=== PATIENT | male | born 1965 | race Caucasian/White ===

== ENCOUNTER 2017-03-13 18:04 | Inpatient (IN) | payer MEDICARE, OTHER, SELFPAY ==
[~2017-03-13] VITALS: Ht 177.8 cm; Wt 116.7 kg
[2017-03-13] MEDS ORDERED: SODIUM CHLORIDE 0.9% 1,000 ML IV ONE (18:26)
[2017-03-13] MEDS ORDERED: ONDANSETRON ODT 4 MG PO ONE (18:30)
[2017-03-13] MEDS ORDERED: SODIUM CHLORIDE FLUSH 10ML SYR IVF ONE (18:30)
[2017-03-13] MEDS ORDERED: ONDANSETRON 2MG/ML, 2ML IVPush ONE (18:30)
[2017-03-13] MEDS ORDERED: ONDANSETRON ODT 4 MG ONE (18:30)
[2017-03-13 19:27] LABS: ASPARTATE AMINO TRANSFERASE 15 U/L (15-37); BLOOD UREA NITROGEN 18 mg/dL (7-18)
[2017-03-13] MEDS ORDERED: OMNIPAQUE 350 MG/ML, 100ML BOTTLE ONE (20:15)
[2017-03-13] MEDS ORDERED: FENTANYL PF 100 MCG/2ML ONE (20:30)
[2017-03-13] MEDS ORDERED: FENTANYL PF 100 MCG/2ML IV ONE (21:00)
[2017-03-13] MEDS ORDERED: BISACODYL 10 MG SUPP PR PRN (21:30)
[2017-03-13] MEDS ORDERED: PROMETHAZINE 25 MG/ML, 1ML IM PRN (21:30)
[2017-03-13] MEDS: LACTATED RINGERS 1,000 ML IV SCH (21:30)
[2017-03-14] MEDS: morphine SULFATE 10 MG/ML, 1ML IVPush PRN ×7 (00:44→21:48)
[2017-03-14] MEDS: ENOXAPARIN 40 MG/0.4 ML SQ SCH ×2 (01:43→21:48)
[2017-03-14 03:38] VITALS: BP 145/95
[2017-03-14] MEDS ORDERED: ONDANSETRON ODT 4 MG ONE (04:09)
[2017-03-14] MEDS: ONDANSETRON 2MG/ML, 2ML IVPush PRN (04:11)
[2017-03-14] MEDS: LACTATED RINGERS 1,000 ML IV SCH ×3 (05:30→17:34)
[2017-03-14 06:15] LABS: BLOOD UREA NITROGEN 15 mg/dL (7-18)
[2017-03-14 09:06] VITALS: BP 122/80
[2017-03-14 12:48] VITALS: BP 130/84
[2017-03-14 21:03] VITALS: BP 133/85
[2017-03-15 02:41] VITALS: BP 123/87
[2017-03-15] MEDS: LACTATED RINGERS 1,000 ML IV SCH ×3 (04:57→19:13)
[2017-03-15] MEDS ORDERED: MORPHINE SULFATE 4 MG/ML, 1ML ONE ×2 (05:08)
[2017-03-15] MEDS: morphine SULFATE 10 MG/ML, 1ML IVPush PRN ×5 (05:11→21:47)
[2017-03-15 05:57] LABS: BLOOD UREA NITROGEN 15 mg/dL (7-18)
[2017-03-15 06:21] LABS: DIFF TOTAL CELLS COUNTED 100 CELL DIFF
[2017-03-15 06:24] LABS: VERIFY COUNTS? YES
[2017-03-15 07:30] VITALS: BP 134/85
[2017-03-15] MEDS: ONDANSETRON 2MG/ML, 2ML IVPush PRN ×2 (12:12→22:19)
[2017-03-15 13:30] VITALS: BP 122/77
[2017-03-15 20:10] VITALS: BP 147/91
[2017-03-15 20:37] LABS: PATH.CAST-FLAG NOT PRESENT; SPERM-FLAG NOT PRESENT; SRC-FLAG NOT PRESENT; XTAL-FLAG NOT PRESENT; YLC-FLAG NOT PRESENT
[2017-03-15] MEDS: ENOXAPARIN 40 MG/0.4 ML SQ SCH (21:47)
[2017-03-15] MEDS: FAMOTIDINE 20 MG/2 ML IVPush SCH (21:47)
[2017-03-16 00:45] VITALS: BP 141/82
[2017-03-16] MEDS: morphine SULFATE 10 MG/ML, 1ML IVPush PRN ×3 (01:35→20:06)
[2017-03-16 05:51] LABS: BLOOD UREA NITROGEN 13 mg/dL (7-18)
[2017-03-16] MEDS: FAMOTIDINE 20 MG/2 ML IVPush SCH ×2 (09:00→23:09)
[2017-03-16] MEDS: LACTATED RINGERS 1,000 ML IV SCH ×2 (09:00→17:00)
[2017-03-16] MEDS ORDERED: COLC0.6T47 PO (12:13)
[2017-03-16 13:05] VITALS: BP 153/99
[2017-03-16] MEDS: COLCHICINE 0.6 MG TABLET PO SCH (14:08)
[2017-03-16] MEDS ORDERED: LABETALOL 5MG/ML, 20ML IVPush PRN (15:00)
[2017-03-16] MEDS: ACETAMINOPHEN 325 MG TABLET PO PRN ×2 (16:27→23:10)
[2017-03-16] MEDS ORDERED: COLCHICINE 0.6 MG TABLET PO ONE (16:30)
[2017-03-16 22:01] VITALS: BP 114/75
[2017-03-16] MEDS: ENOXAPARIN 40 MG/0.4 ML SQ SCH (23:09)
[2017-03-17] MEDS: LACTATED RINGERS 1,000 ML IV SCH ×3 (00:08→17:21)
[2017-03-17] MEDS: morphine SULFATE 10 MG/ML, 1ML IVPush PRN ×5 (03:27→19:25)
[2017-03-17 03:36] VITALS: BP 118/79
[2017-03-17 07:30] VITALS: BP 156/97
[2017-03-17] MEDS: COLCHICINE 0.6 MG TABLET PO SCH ×2 (08:28→22:43)
[2017-03-17] MEDS: FAMOTIDINE 20 MG/2 ML IVPush SCH ×2 (08:28→22:42)
[2017-03-17] MEDS: predniSONE 50MG TABLET PO SCH (10:44)
[2017-03-17 13:45] VITALS: BP 158/83
[2017-03-17 18:33] VITALS: BP 125/74
[2017-03-17] MEDS: ENOXAPARIN 40 MG/0.4 ML SQ SCH (22:42)
[2017-03-18] MEDS: LACTATED RINGERS 1,000 ML IV SCH (01:17)
[2017-03-18 03:15] VITALS: BP 119/72
[2017-03-18] MEDS: morphine SULFATE 10 MG/ML, 1ML IVPush PRN ×2 (04:14→22:25)
[2017-03-18 06:51] LABS: DIFF TOTAL CELLS COUNTED 100 CELL DIFF
[2017-03-18 06:54] LABS: VERIFY COUNTS? YES
[2017-03-18 06:55] LABS: ANISOCYTOSIS 1+; POLYCHROMASIA 1+
[2017-03-18 08:03] VITALS: BP 118/69
[2017-03-18] MEDS: predniSONE 50MG TABLET PO SCH (10:18)
[2017-03-18] MEDS: FAMOTIDINE 20 MG/2 ML IVPush SCH ×2 (10:18→20:25)
[2017-03-18] MEDS: COLCHICINE 0.6 MG TABLET PO SCH ×2 (10:25→20:25)
[2017-03-18] MEDS: SENNA/DOCUSATE TABLET PO SCH ×2 (10:25→20:25)
[2017-03-18 15:28] VITALS: BP 127/81
[2017-03-18 18:35] VITALS: BP 130/75
[2017-03-18] MEDS: ENOXAPARIN 40 MG/0.4 ML SQ SCH (20:25)
[2017-03-19 04:16] VITALS: BP 143/92
[2017-03-19 08:17] VITALS: BP 132/76
[2017-03-19] MEDS: FAMOTIDINE 20 MG/2 ML IVPush SCH (08:43)
[2017-03-19] MEDS: COLCHICINE 0.6 MG TABLET PO SCH (08:43)
[2017-03-19] MEDS: SENNA/DOCUSATE TABLET PO SCH (10:01)
[2017-03-19] MEDS: predniSONE 50MG TABLET PO SCH (10:01)
[2017-03-19] MEDS ORDERED: PRED50TA PO (10:47)
[2017-03-19] MEDS ORDERED: HYDR-3241 PO (10:47)
[2017-03-19] MEDS ORDERED: COLC0.6T47 PO (10:47)
[2017-03-19 11:41] VITALS: BP 146/92
== END 2017-03-19 11:47 | disposition home or self-care (01) | DRG 394 ==
LOC: ED 20:55 → EDIP 20:57 → SUATTDRO 21:11 → ED 21:41 → 4NOR 22:55
DX: K42.0 Umbilical hernia with obstruction, without gangrene (principal); J98.11 Atelectasis; M48.54XA Collapsed vertebra, not elsewhere classified, thoracic region, initial encounter for fracture; R65.10 Systemic inflammatory response syndrome (SIRS) of non-infectious origin without acute organ dysfunction; E86.0 Dehydration; D72.829 Elevated white blood cell count, unspecified; D75.89 Other specified diseases of blood and blood-forming organs; I10 Essential (primary) hypertension; M10.9 Gout, unspecified; M40.209 Unspecified kyphosis, site unspecified; D47.3 Essential (hemorrhagic) thrombocythemia; Z82.49 Family history of ischemic heart disease and other diseases of the circulatory system; Z90.49 Acquired absence of other specified parts of digestive tract
CPT/HCPCS: 36415; 71010; 74000; 74022; 74177; 80048; 80053; 81001; 83605; 83690; 85025; 85610; 87040; 96374; J1650; J2405; J3010; Q0162; Q9967; J2270; J7030; J7120; J7512; S0028

== ENCOUNTER 2020-06-14 14:03 | Emergency (ER) | payer MEDICARE ==
[~2020-06-14] VITALS: Ht 177.8 cm; Wt 113.2 kg
[~2020-06-14 14:03] MED LIST: COLC0.6T47 PO; HYDR-3241 PO; PRED50TA PO
[2020-06-14 14:12] VITALS: BP 158/96
[2020-06-14] MEDS ORDERED: KETOROLAC 60 MG/2 ML ONE (14:53)
[2020-06-14] MEDS ORDERED: COLCHICINE 0.6 MG CAPSULE ONE (14:53)
[2020-06-14] MEDS ORDERED: OXYcodone/APAP 5/325MG TABLET ONE (14:53)
[2020-06-14] MEDS ORDERED: OXYcodone/APAP 5/325MG TABLET PO ONE (15:00)
[2020-06-14] MEDS ORDERED: KETOROLAC 30 MG/1 ML IM ONE (15:00)
[2020-06-14] MEDS ORDERED: COLCHICINE 0.6 MG CAPSULE PO ONE (15:00)
[2020-06-14 15:04] LABS: BASOPHILS # (AUTO) 0.04 x10^3/uL (0-0.1); BASOPHILS % (AUTO) 0 % (0-1); EOSINOPHILS # (AUTO) 0.11 x10^3/uL (0-0.4); EOSINOPHILS % (AUTO) 1 % (1-7); LYMPHOCYTES # (AUTO) 1.91 x10^3/uL (1-3.4); LYMPHOCYTES % (AUTO) 22 % (22-44); MD NO; MEAN CORPUSCULAR HEMOGLOBIN 29.8 pg (27.5-34.5); MEAN CORPUSCULAR VOLUME 90.3 fL (81-97); MEAN PLATELET VOLUME 7.4 fL (7.4-10.4); MONOCYTES # (AUTO) 0.51 x10^3/uL (0.2-0.8); MONOCYTES % (AUTO) 6 % (2-9); NEUTROPHILS # (AUTO) 6.31 x10^3/uL (1.8-6.8); NEUTROPHILS % (AUTO) 71 % (42-75); PLATELET COUNT 514 x10^3/uL (130-400); RED BLOOD COUNT 4.51 x10^6/uL (4.38-5.82); RED CELL DISTRIBUTION WIDTH 15.1 % (9.4-14.8)
[2020-06-14 15:14] LABS: ALBUMIN 2.8 g/dL (3.4-5.0); ANION GAP 8 mmol/L (5-15); CALCIUM 9.3 mg/dL (8.5-10.1); CHLORIDE 105 mmol/L (98-107); CREATININE 1.13 mg/dL (0.7-1.3)
== END 2020-06-14 16:11 ==
LOC: ED 14:35
DX: M10.021 Idiopathic gout, right elbow (principal); M10.031 Idiopathic gout, right wrist; R00.0 Tachycardia, unspecified
CPT/HCPCS: 36415; 73110; 73130; 80048; 82040; 84550; 85025; 96372; 99284; J1885